=== PATIENT | male | born 1935 | race Caucasian/White ===

== ENCOUNTER → 2017-01-11 | Outpatient (CLI) | payer MEDICARE, OTHER | END | disposition home or self-care (01) | LOC: CFH 11:23 | PROVIDERS: ATTEND Family Medicine | DX: K46.9 Unspecified abdominal hernia without obstruction or gangrene (principal) | CPT/HCPCS: 76857 ==

== ENCOUNTER 2018-12-09 09:44 | Inpatient (IN) | payer MEDICARE, OTHER ==
[~2018-12-09] VITALS: Ht 172.7 cm; Wt 75.7 kg
[2018-12-10 07:30] VITALS: BP 110/63
== END 2018-12-10 11:10 | disposition home or self-care (01) | DRG 469 ==
LOC: ORIP 09:44 → 4NOR 13:57 → DCLOUNGE 12-10 10:51
PROVIDERS: ADMIT Orthopaedic Surgery; ATTEND Orthopaedic Surgery
PROC: 0SRB06A Replacement of Left Hip Joint with Oxidized Zirconium on Polyethylene Synthetic Substitute, Uncemented, Open Approach (ICD-10-PCS; principal; 2018-12-09)
DX: M16.12 Unilateral primary osteoarthritis, left hip (principal); R53.2 Functional quadriplegia; I10 Essential (primary) hypertension; E78.5 Hyperlipidemia, unspecified; N40.0 Benign prostatic hyperplasia without lower urinary tract symptoms; E11.9 Type 2 diabetes mellitus without complications; Z79.899 Other long term (current) drug therapy
CPT/HCPCS: 36415; 72170; 76000; 80053; 82962; 83036; 85014; 85018; 85025; 85610; 85730; 87081; 93005; C1713; G0378; J0171; J0690; J1100; J1170; J1885; J2250; J2405; J2704; J2710; J2795; J3010; J3480; C1776; J0330; J7120